=== PATIENT | female | born 1950 | race Caucasian/White ===

== ENCOUNTER 2017-08-18 18:59 | Emergency (ER) | payer MEDICARE, OTHER ==
[~2017-08-18] VITALS: Ht 162.6 cm; Wt 85.0 kg
[2017-08-18] MEDS ORDERED: IBUPROFEN 600MG TABLET PO ONE (20:00)
[2017-08-18 22:06] VITALS: BP 155/75
== END 2017-08-18 22:07 | disposition home or self-care (01) ==
LOC: ER 19:24
DX: S16.1XXA Strain of muscle, fascia and tendon at neck level, initial encounter (principal); I10 Essential (primary) hypertension; V49.9XXA Car occupant (driver) (passenger) injured in unspecified traffic accident, initial encounter; Y93.89 Activity, other specified; Y92.89 Other specified places as the place of occurrence of the external cause; Y99.8 Other external cause status
CPT/HCPCS: 70450; 72125; 99284